=== PATIENT | female | born 2000 | race Caucasian/White ===

== ENCOUNTER 2024-06-06 07:07 | Emergency (ER) | payer MEDICAID, SELFPAY ==
[2024-06-06 07:17] VITALS: BP 125/87; PULSE 103; RESP 19; TEMP 36.6; O2SAT 97; BMI 27.2
--- NOTE | 2024-06-06 07:19 | EKG_ITS ---
[facility] Test Date: 2024-06-06 Pat Name: JERRICA LINDSAY Department: Room: - Gender: Female Asset Specialist: : [id number] Requested By: Servando Mota Order Number: [id number] Reading MD: Servando Mota Measurements Intervals [place] Rate: 98 P: 71 WI: 134 QRS: 89 QRSD: 92 T: 25 QT: 343 QTc: 440 Interpretive Statements SINUS RHYTHM POSSIBLE LEFT ATRIAL ENLARGEMENT [-0.1mV P-WAVE IN V1/V2] NONSPECIFIC ST & T-WAVE ABNORMALITY No previous ECG available for comparison /store/S0/[id number].pdf
--- NOTE | 2024-06-06 07:20 | PD.EDCHEST ---
ED Chest Pain RME/HPI General Chief Complaint: Chest Pain Stated Complaint: Chest Tightness since Tuesday Time Seen by Provider: 06/06/24 07:23 Source: patient Arrival date/time: 06/06/24 07:07 23-year-old female with a history of anxiety presents to the emergency room with a chief complaint of 5 out of 10 sternal chest tightness, increased thirst, palpitations, x 4 days. Patient also states she has lost over 20 pounds since April. Mode of arrival: ambulatory Limitations: no limitations Related Data Previous Rx's ?Medication ?Instructions ?Recorded galcanezumab-gnlm 120 mg/mL 120 mg subcut QMONTH #1 mL 01/21/23 subcutaneous pen injector (Emgality Pen) ubrogepant 50 mg tablet (Ubrelvy) 50 mg PO QDAY PRN Rescue for 01/21/23 migraine #8 tabs Allergies Allergy/AdvReac Type Severity Reaction Status Date / Time ibuprofen (From Motrin) Allergy migraine Verified 03/08/19 16:22 Review of Systems Review of Systems Systems Reviewed: All systems reviewed, normal except as documented Constitutional Constitutional: Reports system reviewed and no additional complaints, except as documented, Denies fatigue, Denies fever(s), Denies headache(s) and Denies weakness Eyes Eyes: Reports system reviewed and no additional complaints, except as documented, Denies blurry vision and Denies change in vision ENT Ears, Nose, Mouth, and Throat: Reports system reviewed and no additional complaints, except as documented, Denies otalgia, Denies headache(s), Denies nasal congestion, Denies throat swelling and Denies vertigo Cardiovascular Cardiovascular: Reports system reviewed and no additional complaints, except as documented, Reports chest pain, Reports chest pain with activity, Denies dyspnea, Denies dyspnea on exertion and Reports rapid heart rate Respiratory Respiratory: Reports system reviewed and no additional complaints, except as documented, Denies chest congestion, Denies cough, Denies dyspnea, Denies dyspnea on exertion and Denies wheezing Gastrointestinal Gastrointestinal: Reports system reviewed and no additional complaints, except as documented, Denies abdominal pain, Denies cramping, Denies nausea and Denies vomiting Genitourinary Genitourinary: Reports system reviewed and no additional complaints, except as documented Musculoskeletal Musculoskeletal: Reports system reviewed and no additional complaints, except as documented and Denies back pain Integumentary/Breasts Skin/Breast: Reports system reviewed and no additional complaints, except as documented and Denies wounds Neurologic Neurologic: Reports system reviewed and no additional complaints, except as documented, Denies confusion, Denies headache(s), Denies lack of coordination, Denies vertigo and Denies weakness Psychiatric Psychiatric: Reports system reviewed and no additional complaints, except as documented, Denies anxiety, Denies confusion, Denies depression, Denies paranoia, Denies suicidal ideation and Denies tactile hallucinations Endocrine Endocrine: Reports system reviewed and no additional complaints, except as documented and Denies fatigue Hematologic/Lymphatic Hematologic/Lymphatic: Reports system reviewed and no additional complaints, except as documented and Denies lymphadenopathy Allergic/Immunologic Allergic/Immunologic: Reports system reviewed and no additional complaints, except as documented, Denies throat swelling, Denies urticaria and Denies wheezing Past Medical History Past Medical History NEUROLOGIC: Positive Neurological Disorders and Migraine CARDIAC: Negative Congestive Heart Failure RESPIRATORY: Negative Chronic Obstructive Pulmonary Disease (COPD) GENITOURINARY: Negative Renal Disease ENDOCRINE: Negative Diabetes Mellitus Type 1 or Diabetes Mellitus Type 2 PSYCHO/SOCIAL: Positive Depression and Anxiety Social History SMOKING STATUS: Former smoker ED Exam General Limitations: Present no limitations General appearance: Present alert and in no apparent distress Head Head exam: Present atraumatic Eye Eye exam: Present normal appearance, PERRL and EOMI ENT ENT exam: Present normal exam, normal oropharynx and mucous membranes moist Neck Neck exam: Present normal inspection, full ROM and trachea midline Chest Chest inspection: Present normal inspection and symmetric chest wall rise Respiratory Respiratory exam: Present normal lung sounds bilaterally; Absent respiratory distress, wheezes, stridor, accessory muscle use or prolonged expiratory phase Cardiovascular Cardiovascular exam: Present regular rate, normal rhythm and normal heart sounds; Absent bradycardia, tachycardia, irregular rhythm, systolic murmur or diastolic murmur Abdominal Exam Abdominal exam: Present soft and normal bowel sounds Extremities Exam Extremities exam: Present normal inspection and full ROM Back Exam Back exam: Present normal inspection and full ROM Neurological Exam Neurological exam: Present alert, oriented X3 and CN II-XII intact Psychiatric Psychiatric exam: Present normal affect and normal mood Skin Skin exam: Present warm, dry, intact and normal color Course Quality Measures none Orders Category Date Time Status Bedside COVID-19 Antigen Test NOW Care 06/06/24 07:23 Completed Bedside Influenza A&B Antigen Test NOW Care 06/06/24 07:23 Completed EKG (ED ONLY) *Do not use* NOW Care 06/06/24 07:19 Completed EKG (ED Only) Stat Exams 06/06/24 07:19 Ordered XR chest 2V Stat Exams 06/06/24 07:23 Completed B-Type Natriuretic Peptide Stat Lab 06/06/24 07:40 Completed CBC Stat Lab 06/06/24 07:40 Completed Comprehensive Metabolic Panel Stat Lab 06/06/24 07:40 Completed Drug Screen,Urine Stat Lab 06/06/24 07:41 Completed Free T4 (Free Thyroxine) Stat Lab 06/06/24 07:40 Completed Magnesium Stat Lab 06/06/24 07:40 Completed TSH [Thyroid Stimulating Hormone] Stat Lab 06/06/24 07:40 Completed Troponin I Stat Lab 06/06/24 07:40 Completed Urinalysis Stat Lab 06/06/24 07:41 Completed Vital Signs Vital signs: Vital Signs Temperature 97.9 F 06/06/24 07:17 Pulse Rate 103 H 06/06/24 07:17 Respiratory Rate 19 06/06/24 07:17 Blood Pressure 125/87 H 06/06/24 07:17 Pulse Oximetry (%) 97 06/06/24 07:17 Oxygen Delivery Method Room Air 06/06/24 07:17 O2 saturation 97% within normal limits Procedures -ED EKG Interpretation #1: Date of EK06/06/24 Rate: 63 Interpretation: Reviewed by me EKG Impression: Normal sinus rhythm Additional EKG comment: EKG shows normal sinus rhythm with no ST deviation Chest Pain MDM Narrative MDM Narrative:: 23-year-old female with a history of anxiety presents to the emergency room with a chief complaint of 5 out of 10 sternal chest tightness, increased thirst, palpitations, x 4 days. Patient also states she has lost over 20 pounds since April. Patient is hemodynamically stable and in no apparent distress. EKG was completed and shows normal sinus rhythm at [address] deviation. CBC CMP troponin were all negative. Chest x-ray was completed and was negative for any acute pneumonic infiltrates. Physical examination shows clear bilateral lung sounds with no wheezing stridor or any respiratory distress Patient was discharged and educated to follow-up with primary care provider and return to the emergency room for any evidence of worsening signs or symptoms Patient data External records reviewed:: [facility] previous records Clinical information provided by:: patient Social determinants that could affect healthcare access:: none Patient has the following chronic illnesses:: No chronic illness How is presenting disease/condition affected by chronic disease/condition?: no chronic disease Evaluation data The following diagnostics were reviewed and interpreted by me:: lab results and radiology exam(s) Lab and/or radiology exams considered but not ordered:: Labs and radiology exams considered and ordered Interpretation Summary: Chest [id number]: Normal heart size. Lungs are clear. The osseous structures are intact. IMPRESSION: No active disease Medications / Prescriptions Medications or Prescriptions considered but not ordered:: Medication not given Medication administrations:: Medication not given Consultations Consultation(s) initiated? (list below): No Diagnosis Chest Pain Differential Diagnosis: stable angina, atypical chest pain, st elevation myocardial infarction and chest pain Most likely diagnosis given after review of the tests above:: Chest pain Admission Indicated Admission indicated?: not indicated Admission Request Was there a request for admission?: No Disposition Plan Disposition Plan: Discharge Discharge Attestation Discharge Attestation: The patient and all family members were given an opportunity to ask questions and understood the discharge instructions. Discharge instructions specifically effects, indications for sooner follow up or return to the emergency department, and the expected course of current diagnosis. Patient condition: Stable Discharge Plan Plan Patient Disposition: HOME (Self Care) Disposition Comment: Stable Prescriptions/Referrals Prescriptions/Med Rec: No Action Emgality Pen 120 mg/mL pen injector 120 mg subcut QMONTH Qty: 1 0RF Ubrelvy 50 mg tablet 50 mg PO QDAY MDD 100 mg PRN (Reason: Rescue for migraine) Qty: 8 1RF Rx Instructions: 1 tab as needed for migraine Referrals: Karissa Chiu MD [Primary Care Provider] - In 1 week Problem List Clinical Impression: Non-cardiac chest pain Patient/Caregiver Discharge Instructions Education Materials: ED Chest Pain, Uncertain Cause Additional Instructions: Please follow-up with your primary care provider in the next 24 to 48 hours. Your cardiac examination was within normal limits. Your EKG was within normal limits. Your thyroid function was checked and was within normal limits. Please follow-up with your primary care provider for further testing For any evidence of worsening signs or symptoms please return to the emergency room immediately Print Language: Ivorian Stand Alone Forms: Courtney Award Info., Patient Portal Info Letter LAURENCE/LIDA Supervising Physician LAURENCE/LIDA Supervising Physician: Dr Cardona
[2024-06-06 07:21] VITALS: BP 139/82; PULSE 63; RESP 17; TEMP 36.7; O2SAT 100; BMI 25.4
--- NOTE | 2024-06-06 07:23 | XR_ITS ---
Examination: PA lateral chest 2 views TECHNIQUE: Upright PA lateral chest 2 views Examination date and time: June 06 2024 0739 hours INDICATIONS: Coughing fever today. FINDINGS: Normal heart size. Lungs are clear. The osseous structures are intact. IMPRESSION: No active disease
[2024-06-06 07:46] LABS: Collection Type, Urine Clean Catch
[2024-06-06 07:49] LABS: Basophils % (Auto) 0 % (0-2.5); Eosinophils # (Auto) 0.1 Thou/mm3 (0.0-0.5); Eosinophils % (Auto) 1 % (0-10); Hematocrit 41.9 % (36.0-46.0); Hemoglobin 14.8 g/dL (12.0-16.0); Immature Granulocytes % (Auto) 0 % (0-0); Immature Granulocytes Auto 0.02 Thou/mm3 (0.00-0.00); Lymphocytes # (Auto) 2.4 Thou/mm3 (1.0-4.8); Lymphocytes % (Auto) 30 % (10-50); Mean Corpuscular HGB Conc 35.3 g/dl (31.0-37.0); Mean Corpuscular Hemoglobin 29.8 pg (25.0-35.0); Mean Corpuscular Volume 85 fL (80-100); Monocytes # (Auto) 0.6 Thou/mm3 (0.0-0.8); Monocytes % (Auto) 8 % (0-12); Neutrophils % (Auto) 61 % (37-80); Nucleated Red Blood Cell % 0 /100 WBC (0); Platelet Count 407 Thou/mm3 (140-440); RDW Standard Deviation 36.8 fL (36.4-46.3); Red Blood Count 4.96 Miln/mm3 (4.00-5.20); White Blood Count 8.2 Thou/mm3 (3.6-11.0)
[2024-06-06 07:54] LABS: Bilirubin,Urine Negative (Negative); Blood,Urine Negative (Negative); Clarity,Urine Clear (Clear/Hazy); Color,Urine Colorless (Lt Yel-Yel); Glucose, Urine Negative (Negative); Ketones,Urine 1+ (Negative); Leukocyte Esterase,Urine Negative (Negative); Nitrite,Urine Negative (Negative); Protein,Urine Negative (Neg - Trace); RBC,Urine 1 /hpf (0-3); Specific Gravity,Urine 1.004 (1.001-1.035); Squamous Epithelial Cell,Urine < 1 /hpf (0-5); Urobilinogen,Urine Negative mg/dL (0.0-1.0); WBC,Urine < 1 /hpf (0-5)
[2024-06-06 08:08] LABS: B-Type Natriuretic Peptide < 20 pg/mL (0-100)
[2024-06-06 08:13] LABS: Alanine Aminotransferase 16 U/L (10-49); Albumin, Serum 4.9 gm/dL (3.5-5.0); Albumin/Globulin Ratio 1.4 (1.2-2.2); Alkaline Phosphatase 81 U/L (46-116); Anion Gap 10 (7-16); Aspartate Amino Transferase 19 U/L (0-34); BUN/Creatinine Ratio 7 Ratio (12-20); Bilirubin,Total 0.8 mg/dL (0.3-1.2); Blood Urea Nitrogen 5 mg/dL (9-23); Calcium 10.2 mg/dL (8.3-10.6); Calcium (Corrected) 10.2 mg/dL (8.5-10.1); Carbon Dioxide 24.5 mMol/L (20.0-31.0); Chloride 105 mMol/L (98-107); Creatinine (Component) 0.7 mg/dL (0.6-1.3); Estimated Creatinine Clearance 113.6 mL/min (>60); Free T4 (Free Thyroxine) 1.58 ng/dL (0.89-1.76); Globulin 3.5 gm/dL (2.3-3.5); Glucose 100 mg/dL (74-106); Magnesium 1.6 mg/dL (1.6-2.6); Osmolality,Calculated 274 (275-295); Potassium 3.6 mMol/L (3.4-5.1); Sodium 139 mMol/L (136-145); Thyroid Stimulating Hormone 1.45 uIU/mL (0.55-4.78); Total Protein 8.4 gm/dL (5.7-8.2); Troponin I < 0.002 ng/mL (0.0-0.045); eGFR > 60 See Note
[2024-06-06 08:14] LABS: Amphetamine/Methamp Scrn,U Negative (Negative); Barbiturate Screen,Urine Negative (Negative); Benzodiazepines Screen,Urine Negative (Negative); Benzoylecgonine Screen, Ur Negative (Negative); Fentanyl Screen,Urine Negative (Negative); Opiate Screen,Urine Negative (Negative); THC Screen,Urine Positive (Negative)
== END 2024-06-06 09:41 | disposition home or self-care (01) ==
PROVIDERS: Nurse Practitioner Family; Emergency Provider Emergency Medicine; PCP Internal Medicine
DX: R07.89 Other chest pain (principal); Z87.891 Personal history of nicotine dependence
CPT/HCPCS: 36415; 71046; 80053; 80307; 81001; 83735; 83880; 84439; 84443; 84484; 85025; 87400; 87811; 93005; 99283

== ENCOUNTER 2024-06-11 14:28 | Emergency (ER) | payer MEDICAID, SELFPAY ==
[2024-06-11 14:29] VITALS: BMI 25.8
[2024-06-11 14:36] VITALS: BP 132/83; PULSE 102; RESP 18; TEMP 37; O2SAT 99
--- NOTE | 2024-06-11 14:39 | XR_ITS ---
Examination: Abdomen sonogram, Limited Date and time of exam: June 11, 2024 1506 hours INDICATIONS: Abdominal pain nausea vomiting beginning one week ago Technique: Real-time [place] valle scale transabdominal sonographic images of the upper abdomen obtained. Findings: Cholelithiasis Gallbladder wall 0.3 cm no edema Common bile duct 0.3 cm Pancreatic head 2.7 cm Liver 11.1 cm fatty infiltration smooth contour no focal liver lesions Normal hepatopedal portal venous flow Patent IVC IMPRESSION: Cholelithiasis, negative for cholecystitis
--- NOTE | 2024-06-11 14:39 | XR_ITS ---
Examination: CT abdomen and pelvis without contrast. Coronal 3-D reconstructions. Sagittal 2-D reconstructions. Date and time of exam:June 11, 2024 1609 hours INDICATIONS: Right-sided flank pain with nausea vomiting beginning one week ago CTDI: vol (mGy): 9.3 DLP: (mGycm): 469 Technique: Axial images of the abdomen have been obtained, 3 mm slice thickness Intravenous contrast material has not been administered. Low dose protocols were performed. One or more of the following dose reduction techniques were used; automated exposure control, adjustment of the mA and/or KV according to patient size, use of iterative reconstruction technique. Findings: No focal liver or splenic lesions No gallstones No pancreatic or adrenal mass No renal or ureteral calculi, no hydronephrosis Aorta normal size Normal appendix No bowel obstruction No bladder mass or bladder calculi IMPRESSION: No renal or ureteral calculi, no hydronephrosis Normal appendix No bladder mass or bladder calculi
--- NOTE | 2024-06-11 14:40 | PD.EDRME ---
Rapid Medical Screening Exam RME Arrival date/time: 06/11/24 14:28 23-year-old female presents the emergency department complains of generalized abdominal pain Chief Complaint: Abdominal Pain Time Seen by Provider: 06/11/24 14:37 Vital signs: Vital Signs Temperature 98.6 F 06/11/24 14:36 Pulse Rate 102 H 06/11/24 14:36 Respiratory Rate 18 06/11/24 14:36 Blood Pressure 132/83 H 06/11/24 14:36 Pulse Oximetry (%) 99 06/11/24 14:36 Oxygen Delivery Method Room Air 06/11/24 14:36
[2024-06-11 15:11] LABS: Collection Type, Urine Clean Catch
[2024-06-11 15:13] LABS: Basophils % (Auto) 0 % (0-2.5); Eosinophils # (Auto) 0.1 Thou/mm3 (0.0-0.5); Eosinophils % (Auto) 1 % (0-10); Hematocrit 43.6 % (36.0-46.0); Hemoglobin 15.6 g/dL (12.0-16.0); Immature Granulocytes % (Auto) 0 % (0-0); Immature Granulocytes Auto 0.02 Thou/mm3 (0.00-0.00); Lymphocytes # (Auto) 3.3 Thou/mm3 (1.0-4.8); Lymphocytes % (Auto) 35 % (10-50); Mean Corpuscular HGB Conc 35.8 g/dl (31.0-37.0); Mean Corpuscular Volume 84 fL (80-100); Monocytes % (Auto) 11 % (0-12); Neutrophils # (Auto) 5.1 Thou/mm3 (1.8-7.7); Neutrophils % (Auto) 54 % (37-80); Nucleated Red Blood Cell % 0 /100 WBC (0); Platelet Count 407 Thou/mm3 (140-440); RDW Standard Deviation 37.3 fL (36.4-46.3); White Blood Count 9.5 Thou/mm3 (3.6-11.0)
[2024-06-11 15:16] LABS: Bilirubin,Urine Negative (Negative); Blood,Urine Negative (Negative); Clarity,Urine Clear (Clear/Hazy); Color,Urine Colorless (Lt Yel-Yel); Culture Indicated,Urine Not Indicated; Glucose, Urine Negative (Negative); Ketones,Urine 2+ (Negative); Leukocyte Esterase,Urine Negative (Negative); Nitrite,Urine Negative (Negative); Protein,Urine Negative (Neg - Trace); RBC,Urine 1 /hpf (0-3); Specific Gravity,Urine 1.008 (1.001-1.035); Squamous Epithelial Cell,Urine 1 /hpf (0-5); Urobilinogen,Urine Negative mg/dL (0.0-1.0); WBC,Urine 1 /hpf (0-5)
[2024-06-11 15:27] LABS: HCG Qualitative,Urine Negative
[2024-06-11 15:47] LABS: Alanine Aminotransferase 16 U/L (10-49); Albumin, Serum 4.8 gm/dL (3.5-5.0); Albumin/Globulin Ratio 1.4 (1.2-2.2); Alkaline Phosphatase 90 U/L (46-116); Anion Gap 10 (7-16); Aspartate Amino Transferase 16 U/L (0-34); BUN/Creatinine Ratio 11 Ratio (12-20); Bilirubin,Total 0.6 mg/dL (0.3-1.2); Blood Urea Nitrogen 8 mg/dL (9-23); Calcium 9.9 mg/dL (8.3-10.6); Calcium (Corrected) 9.9 mg/dL (8.5-10.1); Carbon Dioxide 22.8 mMol/L (20.0-31.0); Chloride 102 mMol/L (98-107); Creatinine (Component) 0.7 mg/dL (0.6-1.3); Estimated Creatinine Clearance 127.5 mL/min (>60); Globulin 3.5 gm/dL (2.3-3.5); Glucose 85 mg/dL (74-106); Lipase 27 U/L (12-53); Osmolality,Calculated 267 (275-295); Potassium 3.6 mMol/L (3.4-5.1); Sodium 135 mMol/L (136-145); Total Protein 8.3 gm/dL (5.7-8.2); eGFR > 60 See Note
--- NOTE | 2024-06-11 17:06 | EDNOTE_ITS ---
ED Abdominal Pain RME/HPI General Chief Complaint: Abdominal Pain Stated complaint: ABD PAIN FOR 9 DAYS, SENT BY [facility] Time seen by provider: 06/11/24 14:37 Arrival date/time: 06/11/24 14:28 23-year-old female with no significant medical problems presents to the emergency department complaint of abdominal pain ongoing for approximately 9 days patient reports no fever nausea or vomiting patient reports pain is mostly upper abdomen Limitations: no limitations RME / HPI RME / HPI narrative: 06/11/24 14:28 23-year-old female presents the emergency department complains of generalized abdominal pain Related Data Previous Rx's ?Medication ?Instructions ?Recorded galcanezumab-gnlm 120 mg/mL 120 mg subcut QMONTH #1 mL 01/21/23 subcutaneous pen injector (Emgality Pen) ubrogepant 50 mg tablet (Ubrelvy) 50 mg PO QDAY PRN Re scue for 01/21/23 migraine #8 tabs famotidine 20 mg tablet (Pepcid) 20 mg PO BID PRN Abdo natanael Pain 30 06/11/24 days #60 tabs metoclopramide HCl 10 mg tablet 10 mg PO Q6H PRN nause a and 06/11/24 (Reglan) vomiting #30 tabs Allergies Allergy/AdvReac Type Severity Reaction Status Date / Time ibuprofen (From Motrin) Allergy Severe migraine Verified 06/11/24 14:31 Review of Systems Review of Systems Systems Reviewed: All systems reviewed, normal except as documented Constitutional Constitutional: Reports system reviewed and no additional complaints, except as documented, Denies fever(s) and Denies headache(s) Eyes Eyes: Reports system reviewed and no additional complaints, except as documented and Denies blurry vision ENT Ears, Nose, Mouth, and Throat: Reports system reviewed and no additional complaints, except as documented, Denies headache(s), Denies nasal congestion and Denies nasal discharge Cardiovascular Cardiovascular: Reports system reviewed and no additional complaints, except as documented, Denies chest pain and Denies dyspnea Respiratory Respiratory: Reports system reviewed and no additional complaints, except as documented, Denies chest congestion, Denies cough and Denies dyspnea Gastrointestinal Gastrointestinal: Reports system reviewed and no additional complaints, except as documented and Reports abdominal pain Integumentary/Breasts Skin/Breast: Reports system reviewed and no additional complaints, except as documented and Denies rash Neurologic Neurologic: Reports system reviewed and no additional complaints, except as documented, Reports as per HPI and Denies headache(s) Past Medical History Past Medical History NEUROLOGIC: Positive Neurological Disorders and Migraine CARDIAC: Negative Congestive Heart Failure RESPIRATORY: Negative Chronic Obstructive Pulmonary Disease (COPD) GENITOURINARY: Negative Renal Disease ENDOCRINE: Negative Diabetes Mellitus Type 1 or Diabetes Mellitus Type 2 PSYCHO/SOCIAL: Positive Depression and Anxiety Social History SMOKING STATUS: Never smoker ED Exam General Limitations: Present no limitations General appearance: Present alert and in no apparent distress Head Head exam: Present atraumatic, normocephalic and normal inspection Eye Eye exam: Present normal appearance, PERRL and EOMI; Absent conjunctival injection ENT ENT exam: Present normal exam, normal oropharynx and mucous membranes moist Neck Neck exam: Present normal inspection, full ROM and trachea midline Chest Chest inspection: Present normal inspection and symmetric chest wall rise Respiratory Respiratory exam: Present normal lung sounds bilaterally; Absent respiratory distress Cardiovascular Cardiovascular exam: Present regular rate, normal rhythm and normal heart sounds Abdominal Exam Abdominal exam: Present soft, tenderness and normal bowel sounds; Absent distention, guarding, rebound, rigidity, Crawford's sign or tenderness at McBurney's Point Abdominal tenderness: Present epigastrium; Absent RUQ or RLQ Extremities Exam Extremities exam: Present normal inspection and full ROM Back Exam Back exam: Present normal inspection and full ROM Neurological Exam Neurological exam: Present alert, oriented X3 and CN II-XII intact Psychiatric Psychiatric exam: Present normal affect and normal mood Skin Skin exam: Present warm, dry, intact and normal color; Absent rash Course Quality Measures none Orders Category Date Time Status CT abdomen pelvis wo con Stat Exams 06/11/24 14:39 Completed US gall bladder Stat Exams 06/11/24 14:39 Completed CBC Stat Lab 06/11/24 14:53 Completed Comprehensive Metabolic Panel Stat Lab 06/11/24 14:53 Completed HCG Qualitative,Urine Stat Lab 06/11/24 14:50 Completed Lipase Stat Lab 06/11/24 14:53 Completed UA, C/S IF [Urinalysis, C/S if Indicated] Stat Lab 06/11/24 14:50 Completed Vital Signs Vital signs: Vital Signs Temperature 98.6 F 06/11/24 14:36 Pulse Rate 102 H 06/11/24 14:36 Respiratory Rate 18 06/11/24 14:36 Blood Pressure 132/83 H 06/11/24 14:36 Pulse Oximetry (%) 99 06/11/24 14:36 Oxygen Delivery Method Room Air 06/11/24 14:36 O2 saturation 99% room air within normal limits Abdominal Pain MDM MDM Narrative MDM Narrative:: 23-year-old female with no significant medical problems presents to the emergency department complaint of abdominal pain ongoing for approximately 9 days patient reports no fever nausea or vomiting patient reports pain is mostly upper abdomen On exam patient well-appearing patient does not appear ill or toxic patient has some tenderness in the epigastrium negative Crawford sign negative McBurney's point tenderness Lab work as well as CT and ultrasound obtained lab work unremarkable CT scan lab work unremarkable Ultrasound consistent with cholelithiasis which is consistent with patient's symptoms Patient discharged home in no distress to follow-up with primary care doctor in the next 24 to 48 hours and for any worsening symptoms to return to the ER immediately Patient data External records reviewed:: [facility] previous records Clinical information provided by:: patient Social determinants that could affect healthcare access:: none Patient has the following chronic illnesses:: None How is presenting disease/condition affected by chronic disease/condition?: no chronic disease Evaluation data The following diagnostics were reviewed and interpreted by me:: lab results and radiology exam(s) Lab and/or radiology exams considered but not ordered:: Labs radiology obtain Interpretation Summary: Reviewed by me Medications / Prescriptions Medications or Prescriptions considered but not ordered:: Given Medication administrations:: Given Consultations Consultation(s) initiated? (list below): No Diagnosis Differential diagnosis abdominal pain: abdominal pain, diverticulitis, gastroenteritis and pancreatitis Most likely diagnosis given after review of the tests above:: Cholelithiasis Admission Indicated Admission indicated?: not indicated Admission Request Was there a request for admission?: No Disposition Plan Disposition Plan: Discharge Discharge Attestation Discharge Attestation: The patient and all family members were given an opportunity to ask questions and understood the discharge instructions. Discharge instructions specifically effects, indications for sooner follow up or return to the emergency department, and the expected course of current diagnosis. Patient condition: Stable Discharge Plan Plan Patient Disposition: HOME (Self Care) Disposition Comment: Stable Prescriptions/Referrals Prescriptions/Med Rec: New famotidine [Pepcid] 20 mg tablet 20 mg PO BID PRN (Reason: Abdominal Pain) 30 Days Qty: 60 0RF metoclopramide HCl [Reglan] 10 mg tablet 10 mg PO Q6H PRN (Reason: nausea and vomiting) Qty: 30 0RF No Action Emgality Pen 120 mg/mL pen injector 120 mg subcut QMONTH Qty: 1 0RF Ubrelvy 50 mg tablet 50 mg PO QDAY MDD 100 mg PRN (Reason: Rescue for migraine) Qty: 8 1RF Rx Instructions: 1 tab as needed for migraine Problem List Clinical Impression: Cholelithiasis Patient/Caregiver Discharge Instructions Education Materials: Treating Gallstones Additional Instructions: Please follow up with your primary care doctor in the next 24-48hrs for any worsening symptoms return here immediately Print Language: Amharic Stand Alone Forms: Courtney Award Info., Work/School Release, Patient Portal Info Letter PA/ROCK BREAKER Supervising Physician PA/LIDA Supervising Physician: Dr Tinoco
== END 2024-06-11 17:13 | disposition home or self-care (01) ==
LOC: SERX 17:17
PROVIDERS: Nurse Practitioner Primary Care; Emergency Provider Emergency Medicine
DX: K80.20 Calculus of gallbladder without cholecystitis without obstruction (principal)
CPT/HCPCS: 36415; 74176; 76705; 80053; 81001; 81025; 83690; 85025; 99284